=== PATIENT | female | born 2000 | race Caucasian/White ===

== ENCOUNTER 2023-03-04 07:55 | Day surgery (SDC) | payer BC ==
[~2023-03-04] VITALS: Ht 172.7 cm; Wt 118.0 kg
[~2023-03-04 07:55] MED LIST: FISH OIL 1,0001 EAC5 PO; FLONASE2 SPRAY; MAGNESIUM400 MG PO; PERCOCET 7.5-31 EACH PO; SLOW FE137 MG PO; SPIRONOLACTONE50 MG PO; VITAMIN B125000 MCG PO
[2023-03-04 08:41] VITALS: BP 119/68
[2023-03-04] MEDS ORDERED: IBUPROFEN600 MG PO (12:13)
[2023-03-04] MEDS ORDERED: ACETAMINOPHEN500 MG PO (12:14)
[2023-03-04] MEDS ORDERED: OXYCODON-ACETA1 EAC2 PO (12:14)
[2023-03-04 12:35] VITALS: BP 121/76
[2023-03-04 13:31] VITALS: BP 127/64
[2023-03-04 14:25] VITALS: BP 118/66
--- NOTE | 2023-03-04 19:08 | OR ---
[facility] [address], [place] [address] Signed DATE OF OPERATION: 03/04/2023 SURGEON: Maria Alejandra Lutz MD PREOPERATIVE DIAGNOSIS: Persisting left posterior triangle enlarged lymph node with central necrosis. 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 PROCEDURE: Left lateral neck exploration with excision of second arch branchial cleft cyst. ANESTHESIA: General endotracheal, Lashon Ozzie, SOUNDING DEVICE OPERATOR and local 6 mL of 0.25% Marcaine with epinephrine. INDICATIONS: This 22-year-old white woman is in college at [employer] and the daughter of a recovery room nurse at [employer]. She is a patient of Dr. Felicia Ventura. She had noticed enlargement of a mass in the left lateral aspect of the neck since December. Her initial presentation was that of some ear pain. She had undergone imaging studies, which included an ultrasound and CT scan, it was considered likely to be a large necrotic lymph node at level 4 on the left side of the mid neck on January 23, 2023. Infectious source was considered possible, though she had no pharyngitis, ear infection, or other problem. She had no regional skin lesion either. The ultrasound performed on January [address] scan was considered likely a pathologically enlarged lymph node, which prompted the CT scan. Clinical examination of the oral cavity and parapharyngeal area showed no abnormality. She has no family history of lymphoma or head neck cancer. She does not smoke or drink alcohol particularly. She underwent ultrasound-guided fine-needle aspiration biopsy by sd, which showed a small amount of fluid material, which did not grow any pathogens and no clear evidence of cells to suggest lymphoma. She has been at [facility] in [facility] and returns this week for definitive excision of the mass, which is considered probably lymph node with a necrotic center. She understands as does her mother the risk of bleeding, infection, nerve injury including spinal accessory nerve or greater auricular nerve, failure to cure the problem, and other problems and wishes to proceed. Electronically Signed By: MARIA ALEJANDRA LUTZ MD 03/04/23 1908 PATIENT NAME: TINY RANGEL OPERATIVE REPORT DATE OF : 01 REPORT #: [id number] PHYSICIAN: MARIA ALEJANDRA LUTZ MD PCP: FELICIA VENTURA MD REPORT IS CONFIDENTIAL AND NOT TO BE RELEASED WITHOUT AUTHORIZATION [facility] [address], [place] [address] Signed FINDINGS: The lesion was smooth walled and deep within the neck below the sternocleidomastoid muscle. It was completely excised. Prior to a total excision, capsule ruptured and non-foul smelling mucopurulent material was noted. This was Gram stained and cultured. Complete excision was undertaken and based on its configuration, more likely than not this represented a branchial cleft cyst of the second pharyngeal pouch. The greater auricular nerve I believe was identified and was preserved. DESCRIPTION OF PROCEDURE: The patient was brought to the operating room given a general endotracheal anesthetic. She was placed in position with lateral neck extension. The palpable abnormality of the neck was in the superior aspect directly below the sternocleidomastoid muscle, trending towards the posterior triangle generally. The neck was prepared with a chlorhexidine solution and draped sterilely. Sequential compression device stockings used and preoperative antibiotic, Levaquin had been given. After sterile draping, the skin was examined carefully from the natural skin tension line, which was marked and incision made directly over the area in question. Dissection was carried through the dermis with electrocautery and subcutaneous tissue was with hemostats and judicious use of cautery, identifying a nerve coursing superior, which may have represented a greater auricular nerve that was far smaller than would normally be seen. In any case, it was preserved. Episodic palpation of the target lesion was undertaken and the sternocleidomastoid muscle was along its fibers, ultimately revealing the underlying abnormality deep within the neck. Meticulous care was maintained to avoid injury and using blunt dissection, superiorly, medially and inferiorly. Meticulous care was maintained to avoid injury to the surrounding structures. Ultimately, the superior and inferior aspects were freed more fully. The lesion though initially thought to be lymph node had a very shiny surface and upon further mobilization, the capsule ruptured emitting egress of mucoid yellowish material considered purulent. A STAT Gram stain was obtained showing 4+ white cells and no organisms. Further dissection at this point was rather easy and the root and base of the lesion was ultimately defined and marked with clips and ultimately divided. Complete excision of the lesion was undertaken. Close inspection showed in my opinion more likely to be a branchial cleft cyst than a necrotic lymph node. This was passed for permanent pathology with those instructions in mind. Irrigation was undertaken, there was no evidence of bleeding in any real way. Copious irrigation was undertaken on the possibility there could have been infection within this structure. A bit of Roman hemostatic powder was insufflated deep into the wound. Sternocleidomastoid muscle was reapproximated with interrupted 3-0 Vicryl, preserving the greater auricular nerve or nerve branch that had been identified. The wound was closed in more superficial layers with interrupted 3-0 Vicryl and the skin closed with running subcuticular 3-0 Vicryl. Steri-Strips were applied as was Acticoat dressing. Electronically Signed By: MARIA ALEJANDRA LUTZ MD 03/04/23 1908 PATIENT NAME: TINY RANGEL OPERATIVE REPORT DATE OF : 01 REPORT #: [id number] PHYSICIAN: MARIA ALEJANDRA LUTZ MD PCP: FELICIA VENTURA MD REPORT IS CONFIDENTIAL AND NOT TO BE RELEASED WITHOUT AUTHORIZATION [facility] [address] [facility] [place] [place] [address] Signed BLOOD LOSS: Minimal. COMPLICATIONS: None. MD LAYLA Wood/ALEXANDRUL /[id number] cc: Dr. Tyler Ventura Copies: ~ Electronically Signed By: MARIA ALEJANDRA LUTZ MD 03/04/23 1908 PATIENT NAME: TINY RANGEL OPERATIVE REPORT DATE OF : 01 REPORT #: [id number] PHYSICIAN: MARIA ALEJANDRA LUTZ MD PCP: FELICIA VENTURA MD REPORT IS CONFIDENTIAL AND NOT TO BE RELEASED WITHOUT AUTHORIZATION
--- NOTE | 2023-03-12 12:28 | PATH ---
[facility] [address], [place] [address] Signed SPECIMEN(S): A LEFT LATERAL NECK MASS SPECIMEN SOURCE: A. LEFT LATERAL NECK MASS CLINICAL HISTORY: Excision left neck lymph node. Left lateral neck mass, lymph node vs. pharyngeal pouch. Rule out branchial cleft cyst. Cervical lymphadenopathy. FINAL PATHOLOGIC DIAGNOSIS: Left lateral neck mass, excision: - Squamous lined cyst with adjacent bland lymphoid tissue, and foreign body type reaction with histiocytes. - See comment. COMMENT: Considering the reported location of the cyst (left lateral neck) together with the patient's age, the observed histologic features are favored to represent a partially ruptured branchial cleft cyst, however similar histologic features could also be seen in the setting of a pharyngeal pouch. The presence of a squamous-lined cyst within a cervical lymph node is also considered, but is not favored. Continued clinical and radiographic correlation is encouraged. The cystic epithelium appears bland, with no overt cytologic atypia or malignancy identified. p16 immunostain performed on both blocks A1 and B1 shows patchy nuclear and cytoplasmic expression of approximately 50% of the cyst epithelium, predominantly within the luminal surface layers of epithelium (versus full thickness expression). This finding is non-specific/equivocal, however in situ hybridization studies for HPV 16/18 are pending to more definitively rule out transcriptionally active HPV involvement, the result of which will be reported in an addendum. This case was reviewed in consultation with Sirena Choe DDS, MS, Board Certified Oral and Maxillofacial Pathologist. JannetVR:GRICELDA:tonya MICROSCOPIC EXAMINATION: Histologic sections of all submitted blocks are examined by light microscopy. These findings, together with the gross examination, support the pathologic diagnosis. PATIENT NAME: TINY RANGEL PATHOLOGY DATE OF : 01 REPORT #: [id number] PHYSICIAN: [facility] PATHOLOG[facility] PCP: SUSAN VENTURA MD REPORT IS CONFIDENTIAL AND NOT TO BE RELEASED WITHOUT AUTHORIZATION [facility] [address], [place] [address] Signed Immunohistochemical stains were performed with appropriate controls and show the following: Block A1: p16: Patchy nuclear and cytoplasmic expression within the cystic epithelium, predominantly luminal surface layers. Cytokeratin AE1/AE3: Positive in the cystic epithelium. Block A2: p16: Patchy nuclear and cytoplasmic expression within the cystic epithelium, predominantly luminal surface layers. Cytokeratin AE1/AE3: Positive in the cystic epithelium. VESTA:GRICELDA:tonya IADDITIONAL NOTES: Immunohistochemical and/or in situ hybridization studies were performed on this case with the appropriate positive controls that react as expected. This test was developed and its performance characteristics determined by [facility]. It has not been cleared or approved by the U.S. Food and Drug Administration. The FDA has determined that such clearance or approval is not necessary. This test is used for clinical purposes. It should not be regarded as investigational or for research. [facility] is certified under the Clinical Laboratory Improvement Amendments of 1988 (CLIA) as qualified to perform high complexity clinical laboratory testing. This assay has not been validated for specimens that have been decalcified. GROSS DESCRIPTION: The specimen, labeled and designated "Sangeeta, left lateral neck mass," is received in formalin and consists of a pink-olsen tissue fragment that measures 2.5 x 1.5 x 1.0 cm. Sectioning through the specimen reveals cyst-like tissue. The possible cyst measures 1.0 cm in diameter. The possible cyst is empty. The wall of the possible cyst is disrupted. [employer] sections are submitted in (A1-A2). JS (under the direct supervision of a pathologist) The Gross Description was prepared using a voice recognition system. The report was reviewed for accuracy; however, sound-alike word errors, addition and/or deletions may occur. If there is any question about this report, please contact Client Services. PERFORMING LABORATORY: Technical component was performed by [facility], [facility] Antonio Mock, PATIENT NAME: TINY RANGEL PATHOLOGY DATE OF : 01 REPORT #: [id number] PHYSICIAN: OLIVE VENCES PCP: SUSAN VENTURA MD REPORT IS CONFIDENTIAL AND NOT TO BE RELEASED WITHOUT AUTHORIZATION [facility] [address], [place] [address] [place] [address] (CLIA# [id number]). Professional interpretation was performed by [facility], [address] [place] [address], [place] [address] (CLIA#: [id number]). Diagnostician: Gurdeep Washington MD Pathologist Electronically Signed 03/12/2023 Copies: ~ PATIENT NAME: TINY RANGEL PATHOLOGY DATE OF : 01 REPORT #: [id number] PHYSICIAN: OLIVE PATHOLOGY PCP: SUSAN VENTURA MD REPORT IS CONFIDENTIAL AND NOT TO BE RELEASED WITHOUT AUTHORIZATION
== END 2023-03-04 14:30 | disposition home or self-care (01) ==
LOC: DS 07:55
PROVIDERS: ATTEND Surgery
PROC: 0KB30ZZ Excision of Left Neck Muscle, Open Approach (ICD-10-PCS; principal; 2023-03-04 09:15)
DX: R22.1 Localized swelling, mass and lump, neck (principal); E66.01 Morbid (severe) obesity due to excess calories; Z68.39 Body mass index [BMI] 39.0-39.9, adult
CPT/HCPCS: 00300; 87070; 87075; 87205; J0131; J1100; J1790; J1885; J1956; J2250; J2405; J2704; J3490; J7121

== ENCOUNTER 2024-02-10 09:12 | Emergency (ER) | payer BC ==
[~2024-02-10] VITALS: Ht 172.7 cm; Wt 122.5 kg
[~2024-02-10 09:12] MED LIST changes: +ACETAMINOPHEN500 MG PO; +IBUPROFEN600 MG PO; +OXYCODON-ACETA1 EAC2 PO
[2024-02-10 09:45] LABS: BASOPHILS 0.5 % (0-2); EOSINOPHILS 0.1 % (0-6); HEMATOCRIT 42.4 % (35.0-50.0); HEMOGLOBIN 14.6 g/dL (12.0-18.0); LYMPHOCYTES 16.3 % (24-44); MCH 28.8 (27-36); MCHC 34.5 g/dl (30-36); MCV 83.4 fl (81-99); MONOCYTES 4.6 % (0-12); NEUTROPHILS 78.5 % (39-80); PLATELET COUNT 346 K/uL (140-440); RBC 5.08 M/ul (4.3-5.7); RDW 12.4 (10.5-15.0)
[2024-02-10] MEDS ORDERED: ondansetron HCL 4 MG/2 ML VIAL IV ONE (09:45)
[2024-02-10] MEDS ORDERED: SODIUM CHLORIDE 0.9% 1,000 ML IV PRN (09:45)
[2024-02-10 09:56] LABS: ALBUMIN 3.8 g/dL (3.4-5.0); ALBUMIN/GLOBULIN RATIO 0.9 (1.1-2.4); ANION GAP 11.3 (7-21); BILIRUBIN, TOTAL 0.3 ng/dL (0.2-1.0); BUN/CREATININE RATIO 7.14 (6.0-28.6); CALCIUM 9.6 mg/dL (8.5-10.1); CREATININE, SERUM 1.12 mg/dL (0.55-1.02); POTASSIUM 3.3 mmol/L (3.5-5.1)
[2024-02-10 10:43] LABS: INFLUENZA B NAA NEGATIVE (NEGATIVE); RESPIRATORY SYNCYTIAL VIR NAA NEGATIVE (NEGATIVE)
[2024-02-10] MEDS ORDERED: KETOROLAC TROMETHAMINE 30 MG/ML VIAL IV ONE (11:15)
[2024-02-10] MEDS ORDERED: ONDANSETRON ODT4 MG PO (11:31)
[2024-02-10 11:53] VITALS: BP 115/75
[2024-02-10] MEDS ORDERED: ONDANSETRON 4 MG TAB ODT SL ONE (12:00)
== END 2024-02-10 11:54 | disposition home or self-care (01) ==
LOC: ED 09:12
PROVIDERS: Emergency Medicine
DX: R11.2 Nausea with vomiting, unspecified (principal); R19.7 Diarrhea, unspecified; Z88.1 Allergy status to other antibiotic agents; Z11.52 Encounter for screening for COVID-19
CPT/HCPCS: 36415; 80053; 84703; 85025; 87502; 96361; 96374; 96375; 99284-25; A9270; J1885; J2405; J7030; U0002